=== PATIENT | male | born 1970 | race Caucasian/White ===

== ENCOUNTER 2017-01-22 11:31 | Emergency (ER) | payer OTHER ==
[~2017-01-22] VITALS: Ht 188 cm; Wt 100.0 kg
[~2017-01-22 11:31] MED LIST: CEPH500C3 PO; ENOX30P SQ; OXYC-360 PO; TYLE3 PO; Z.0.NO CURRENT MEDS
[2017-01-22 11:33] VITALS: BP 128/80; PULSE 72; RESP 20; TEMP 98.3; O2SAT 98
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
[2017-01-22] MEDS ORDERED: PROPARACAINE HCL 0.5% OPHT SOLN 15 ML BTL EACH EYE ONE (12:15)
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
[2017-01-22] MEDS ORDERED: IBUP800T23 PO ×2 (13:12→13:28)
[2017-01-22] MEDS ORDERED: CILO0.3S RIGHT EYE (13:12)
== END 2017-01-22 14:00 | disposition home or self-care (01) ==
LOC: NEPD 11:31
DX: S00.83XA Contusion of other part of head, initial encounter (principal); S05.01XA Injury of conjunctiva and corneal abrasion without foreign body, right eye, initial encounter; K21.9 Gastro-esophageal reflux disease without esophagitis; F17.200 Nicotine dependence, unspecified, uncomplicated; Z79.899 Other long term (current) drug therapy; Y04.2XXA Assault by strike against or bumped into by another person, initial encounter
CPT/HCPCS: 70450; 70486; 99285

== ENCOUNTER 2017-12-27 13:12 | Emergency (ER) | payer OTHER ==
[~2017-12-27 13:12] MED LIST changes: +CILO0.3S RIGHT EYE; +IBUP1TAB7 PO
[2017-12-27 13:22] VITALS: BP 116/70; PULSE 83; RESP 18; TEMP 98.5; O2SAT 96
[2017-12-27] MEDS ORDERED: CLIN300C5 PO (14:30)
--- NOTE | 2017-12-27 14:30 | PD ---
HPI Chief Complaint: Bite or Sting Time Seen by Provider: 13:35 Travel History International Travel<30 days: No Contact w/Intl Traveler<30days: No Traveled to known affect area: No History of Present Illness HPI This is a 47-year-old male here with pain and swelling at the site of a cat bite from 3 days ago. He reports his cat bit the arm several days ago. It has slowly become increasing more red and painful. He denies fever or chills. No decreased range of motion of the wrist or fingers. Does not feel there is any retained foreign body. He reports the bite was superficial. Symptom severity is moderate. No aggravating or alleviating factors. PFSH Past Medical History Medical History: Denies Significant Hx Cancer: No Cardiovascular Problems: No Endocrine: No GERD: Yes Genitourinary: No Immune Disorder: No Musculoskeletal: No Neurologic: No Psychiatric: No Reproductive: No Respiratory: No Influenza Vaccination: No Past Surgical History Pacemaker: No Other Surgery: Yes Social History Alcohol Use: Yes (ONCE IN A [employer]) Tobacco Use: No Substance Use: No Allergies-Medications (Allergen,Severity, Reaction): Coded Allergies: No Known Allergies (Verified Adverse Reaction, Unknown, 12/27/17) Reported Meds & Prescriptions Reported Meds & Active Scripts Active No Active Prescriptions or Reported Medications Review of Systems Except as stated in HPI: all other systems reviewed are Neg General / Constitutional: No: Fever Eyes: No: Visual changes HENT: No: Headaches Cardiovascular: No: Chest Pain or Discomfort Respiratory: No: Shortness of Breath Gastrointestinal: No: Abdominal Pain Genitourinary: No: Dysuria Skin: No Rash Physical Exam Narrative GENERAL: Alert and well-appearing 47-year-old male SKIN: Multiple superficial abrasions to the left forearm dorsal aspect. With surrounding cellulitis. HEAD: Normocephalic. EYES: No scleral icterus. No injection or drainage. NECK: Supple RESPIRATORY: No accessory muscle use. GASTROINTESTINAL: nondistended. MUSCULOSKELETAL: No cyanosis. LUE: +ttp distal forearm dorsal aspect with multiple superficial abrasions/puncture wounds with surrounding cellulitis. Palpable radial pulse. Can freely move the wrist and fingers. Normal sensation distally. Brisk cap refill. Data Data Last Documented VS Vital Signs Date Time Temp Pulse Resp B/P (MAP) Pulse Ox O2 Delivery O2 Flow Rate FiO2 12/27/17 13:22 98.5 83 18 116/70 (85) 96 MDM Medical Decision Making Medical Screen Exam Complete: Yes Emergency Medical Condition: Yes Differential Diagnosis Puncture wound, cellulitis, abscess Narrative Course 47-year-old male here with cellulitis to left upper extremity. He is nontoxic appearing. The area was marked with a pen. he will be placed on clindamycin with strict return precautions. Diagnosis Primary Impression: Cellulitis Qualified Codes: L03.114 - Cellulitis of left upper limb Referrals: Primary Care Physician Additional Instructions: Antibiotics as directed. Return to emergency department if you develop fever, increasing pain, redness spreading beyond the marked area Scripts Clindamycin (Clindamycin) 300 Mg Cap 300 MG PO Q6H for Infection for 10 Days, #40 CAP 0 Refills Prov: Fiona Guevara 12/27/17 Disposition: 01 DISCHARGE HOME Condition: Stable Fiona Guevara Dec 27, 2017 14:30
== END 2017-12-27 14:45 | disposition home or self-care (01) ==
LOC: PHEFT 13:12
DX: L03.114 Cellulitis of left upper limb (principal); K21.9 Gastro-esophageal reflux disease without esophagitis
CPT/HCPCS: 99283